=== PATIENT | female | born 1965 ===

== ENCOUNTER 2023-10-24 13:26 | Inpatient (IN) | payer MEDICARE, OTHER ==
[~2023-10-24] VITALS: Ht 172.7 cm; Wt 113.4 kg
[2023-10-24 20:45] VITALS: BP 122/73; TEMP 98.2; O2SAT 97
[2023-10-24] MEDS: HYDROMORPHONE HCL 2 MG TABLET PO PRN (22:31)
[2023-10-24] MEDS: METHOCARBAMOL 750 MG TABLET PO PRN (22:31)
[2023-10-24] MEDS ORDERED: PANT40TA49 PO (23:25)
[2023-10-24] MEDS ORDERED: LACT10SO58 PO (23:25)
[2023-10-24] MEDS ORDERED: MELO-107 PO (23:25)
[2023-10-24] MEDS ORDERED: ACET-2154 PO (23:25)
[2023-10-24] MEDS ORDERED: NALO25TA4 PO (23:25)
[2023-10-24] MEDS ORDERED: HYDR200T4 PO (23:25)
[2023-10-24] MEDS ORDERED: ASCO500T85 PO (23:25)
[2023-10-24] MEDS ORDERED: TRAZ-257 PO (23:25)
[2023-10-24] MEDS ORDERED: LISI10TA29 PO (23:25)
[2023-10-24] MEDS ORDERED: BISA10SU61 RC (23:25)
[2023-10-24] MEDS ORDERED: DIPH25TA25 PO (23:25)
[2023-10-24] MEDS ORDERED: DOCU-141 PO (23:25)
[2023-10-24] MEDS ORDERED: GABA-532 PO (23:25)
[2023-10-24] MEDS ORDERED: LORA5SOL38 PO (23:25)
[2023-10-25] MEDS ORDERED: MORPHINE SULFATE SR 15 MG TABLET.SA PO SCH ×2 (00:15→09:00)
[2023-10-25] MEDS: MORPHINE SULFATE SR 15 MG TABLET.SA PO SCH (00:47)
[2023-10-25 04:30] VITALS: BP 136/62; TEMP 98.5; O2SAT 98
[2023-10-25 08:00] VITALS: BP 146/78; TEMP 98.6; O2SAT 96
[2023-10-25] MEDS ORDERED: BISACODYL 10 MG SUPP.RECT RC PRN (15:30)
[2023-10-25] MEDS ORDERED: diphenhydrAMINE 25 MG CAP PO PRN (15:30)
[2023-10-25] MEDS: LISINOPRIL 10 MG TABLET PO SCH (15:46)
[2023-10-25] MEDS: MELOXICAM 7.5 MG TABLET PO SCH (15:46)
[2023-10-25] MEDS: HYDROXYCHLOROQUINE SULFATE 200 MG TABLET PO SCH (15:46)
[2023-10-25] MEDS: HYDROMORPHONE HCL 2 MG TABLET PO PRN (15:47)
[2023-10-25] MEDS: LORATADINE 10 MG TABLET PO SCH (16:03)
[2023-10-25] MEDS: GABAPENTIN 100 MG CAPSULE PO SCH (16:03)
[2023-10-25] MEDS: LACTULOSE 20 G/30 ML LIQUID UDC PO PRN (16:04)
[2023-10-25 16:07] VITALS: BP 133/80; TEMP 97.9; O2SAT 96
[2023-10-25] MEDS: DOCUSATE SODIUM 100 MG CAPSULE PO SCH (17:30)
[2023-10-25] MEDS: ASCORBIC ACID 500 MG TABLET PO SCH (17:30)
[2023-10-25 19:45] VITALS: BP 129/57; TEMP 98.1; O2SAT 97
[2023-10-26 05:44] VITALS: BP 117/45; TEMP 97.3; O2SAT 97
[2023-10-26] MEDS: PANTOPRAZOLE SODIUM 40 MG TABLET.DR PO SCH (06:14)
[2023-10-26] MEDS ORDERED: Naloxegol Oxalate (Movantik) 25 MG) PO SCH (09:00)
[2023-10-26 16:26] VITALS: BP 126/75; TEMP 98.6; O2SAT 96
[2023-10-26] MEDS: ACETAMINOPHEN 325 MG TABLET PO PRN (18:21)
[2023-10-26 19:50] VITALS: BP 130/52; TEMP 97.7; O2SAT 96
[2023-10-27] MEDS: TRAZODONE 100 MG TABLET PO PRN (00:43)
[2023-10-27 05:36] VITALS: BP 114/49; TEMP 98; O2SAT 95
[2023-10-27 08:40] VITALS: BP 103/68; TEMP 99; O2SAT 97
[2023-10-27 11:06] VITALS: BP 103/76; TEMP 99; O2SAT 98
[2023-10-27 16:23] VITALS: BP 125/79; TEMP 97.9; O2SAT 97
[2023-10-27 20:00] VITALS: BP 115/53; TEMP 98.3; O2SAT 97
[2023-10-28 06:44] LABS: BASOPHILS # (AUTO) 0.1 K/UL (0.0-0.2); BASOPHILS % (AUTO) 0.7 % (0.0-2.0); EOSINOPHILS # (AUTO) 0.4 K/uL (0.0-0.7); EOSINOPHILS % (AUTO) 5.7 % (0.0-7.0); HEMATOCRIT 34.5 % (31.2-41.9); HEMOGLOBIN 11.3 g/dL (10.9-14.3); LYMPHOCYTES # (AUTO) 1.5 K/uL (0.8-4.8); LYMPHOCYTES % (AUTO) 19.7 % (20.5-51.5); MEAN CORPUSCULAR HEMOGLOBIN 28.2 uug (24.7-32.8); MEAN CORPUSCULAR HGB CONC 33 g/dL (32.3-35.6); MONOCYTES # (AUTO) 0.7 K/uL (0.1-1.30); MONOCYTES % (AUTO) 9.5 % (0.0-11.0); NEUTROPHILS # (AUTO) 4.8 K/uL (1.8-8.9); NEUTROPHILS % (AUTO) 64.4 % (38.5-71.5); PLATELET COUNT (AUTO) 358 K/uL (179-408); RED BLOOD CELL COUNT(AUTO) 4.01 MIL/uL (3.63-4.92); RED CELL DISTRIBUTION WIDTH 15.9 % (12.3-17.7); WHITE BLOOD COUNT (AUTO) 7.5 K/uL (3.8-11.8)
[2023-10-28 07:07] LABS: THYROID STIMULATING HORMONE 1.474 mIU/mL (0.358-3.740)
[2023-10-28 07:26] LABS: ALBUMIN 2.9 g/dL (3.4-5.0); BILIRUBIN,TOTAL 0.2 mg/dL (0.2-1.0); CALCIUM 8.5 mg/dL (8.5-10.1); CREATININE 0.6 mg/dL (0.6-1.3); MAGNESIUM 2.3 mg/dL (1.8-2.4); POTASSIUM 4.3 mmol/L (3.5-5.1); TOTAL PROTEIN, SERUM 6.8 g/dL (6.4-8.2)
[2023-10-28 07:28] LABS: DIFFERENTIAL COMMENT 1
[2023-10-28 07:38] LABS: C-REACTIVE PROTEIN 0.93 mg/dL (0.00-0.30)
[2023-10-28 16:00] VITALS: BP 119/55; TEMP 98; O2SAT 97
[2023-10-28 20:02] VITALS: TEMP 99
[2023-10-29 06:04] VITALS: TEMP 98.3
[2023-10-29 13:30] VITALS: BP 120/68
[2023-10-29 16:30] VITALS: BP 118/74; TEMP 98.9; O2SAT 96
[2023-10-29] MEDS: MELOXICAM 7.5 MG TABLET PO SCH (18:00)
[2023-10-29 20:05] VITALS: BP 118/55; TEMP 98.4; O2SAT 96
[2023-10-30 07:10] VITALS: BP 105/51; TEMP 98.5; O2SAT 95
[2023-10-30 16:00] VITALS: BP 113/71; TEMP 97.2; O2SAT 98
[2023-10-31 08:00] VITALS: BP 118/72; TEMP 98.1; O2SAT 97
[2023-10-31 20:32] VITALS: BP 110/64; TEMP 98.6; O2SAT 95
[2023-11-01 08:00] VITALS: BP 103/45; TEMP 98.4; O2SAT 96
[2023-11-01 15:29] VITALS: BP 122/77; TEMP 98.7; O2SAT 98
[2023-11-01 20:00] VITALS: BP 101/55; TEMP 99; O2SAT 96
[2023-11-02 12:00] VITALS: BP 121/72; TEMP 98.6; O2SAT 96
== END 2023-11-02 14:45 | disposition home health service (06) | DRG 949 ==
PROVIDERS: ADMIT Physical Medicine & Rehabilitation Pain Medicine; ATTEND Physical Medicine & Rehabilitation Pain Medicine
DX: T84.84XD Pain due to internal orthopedic prosthetic devices, implants and grafts, subsequent encounter (principal); D68.59 Other primary thrombophilia; E44.0 Moderate protein-calorie malnutrition; I42.9 Cardiomyopathy, unspecified; E66.9 Obesity, unspecified; Z68.38 Body mass index [BMI] 38.0-38.9, adult; E88.09 Other disorders of plasma-protein metabolism, not elsewhere classified; G40.909 Epilepsy, unspecified, not intractable, without status epilepticus; G62.9 Polyneuropathy, unspecified; G89.29 Other chronic pain; I10 Essential (primary) hypertension; R73.03 Prediabetes; M51.36 Other intervertebral disc degeneration, lumbar region; M32.9 Systemic lupus erythematosus, unspecified; M19.90 Unspecified osteoarthritis, unspecified site; Z79.891 Long term (current) use of opiate analgesic; F32.A Depression, unspecified; K27.9 Peptic ulcer, site unspecified, unspecified as acute or chronic, without hemorrhage or perforation; Z86.74 Personal history of sudden cardiac arrest; Z96.641 Presence of right artificial hip joint; Z98.84 Bariatric surgery status; K21.9 Gastro-esophageal reflux disease without esophagitis
CPT/HCPCS: 36415; 82652; 83735; 84100; 84443; 85025; 86140; 97535-GO-CO; A4663

== ENCOUNTER 2024-04-04 14:09 | Inpatient (IN) | payer MEDICARE, OTHER ==
[~2024-04-04] VITALS: Ht 172.7 cm; Wt 113.4 kg
[~2024-04-04 14:09] MED LIST: ACET-2154 PO; ASCO500T85 PO; BISA10SU61 RC; DIPH25TA25 PO; DOCU-141 PO; GABA-532 PO; HYDR200T4 PO; LACT10SO58 PO; LISI10TA29 PO; LORA5SOL38 PO; MELO-107 PO; NALO25TA4 PO; PANT40TA49 PO; TRAZ-257 PO
[2024-04-04 20:00] VITALS: BP 128/80; TEMP 101.8; O2SAT 95
[2024-04-04] MEDS ORDERED: MULT-225 PO (23:04)
[2024-04-04] MEDS ORDERED: ALBU2.5V13 NEB (23:04)
[2024-04-04] MEDS ORDERED: HYDR8TAB2 PO (23:04)
[2024-04-04] MEDS ORDERED: ASPI-612 PO (23:04)
[2024-04-04] MEDS ORDERED: PREG75CA PO (23:04)
[2024-04-04] MEDS ORDERED: METH-807 PO (23:04)
[2024-04-04] MEDS ORDERED: HYDR-4209 PO (23:04)
[2024-04-04] MEDS ORDERED: MAGN400O6 PO (23:04)
[2024-04-05] MEDS: HYDROMORPHONE HCL 2 MG TABLET PO ONE (01:22)
[2024-04-05] MEDS: GABAPENTIN 100 MG CAPSULE PO SCH (05:07)
[2024-04-05] MEDS: HYDROCODONE/APAP 5-325MG TABLET PO PRN (05:12)
[2024-04-05 06:00] VITALS: BP 141/62; TEMP 99.7; O2SAT 95
[2024-04-05] MEDS ORDERED: GABAPENTIN 100 MG CAPSULE PO SCH (06:00)
[2024-04-05] MEDS: PANTOPRAZOLE SODIUM 40 MG TABLET.DR PO SCH (06:37)
[2024-04-05] MEDS ORDERED: HYDROXYCHLOROQUINE SULFATE 200 MG TABLET PO SCH (09:00)
[2024-04-05] MEDS ORDERED: ASPIRIN 325 MG TABLET PO SCH (09:00)
[2024-04-05] MEDS ORDERED: PREGABALIN 25 MG CAPSULE PO SCH (09:00)
[2024-04-05] MEDS ORDERED: LISINOPRIL 10 MG TABLET PO SCH (09:00)
[2024-04-05] MEDS ORDERED: METHOCARBAMOL 750 MG TABLET PO SCH (09:00)
[2024-04-05] MEDS: MELOXICAM 7.5 MG TABLET PO SCH (09:12)
[2024-04-05] MEDS: LISINOPRIL 10 MG TABLET PO SCH (09:12)
[2024-04-05] MEDS: PREGABALIN 25 MG CAPSULE PO SCH (09:12)
[2024-04-05] MEDS: ASCORBIC ACID 500 MG TABLET PO SCH (09:13)
[2024-04-05] MEDS: LORATADINE 10 MG TABLET PO SCH (09:13)
[2024-04-05] MEDS: DOCUSATE SODIUM 100 MG CAPSULE PO SCH (09:13)
[2024-04-05] MEDS: ASPIRIN EC 325 MG TABLET.DR PO SCH (09:13)
[2024-04-05] MEDS ORDERED: BISA-79 PO (11:07)
[2024-04-05] MEDS ORDERED: CHOL500062 PO (11:16)
[2024-04-05] MEDS: CHOLECALCIFEROL 1,000 UNIT TABLET PO SCH (12:44)
[2024-04-05] MEDS: MULTIVITAMINS,THERAPEUTIC TABLET PO SCH (12:44)
[2024-04-05] MEDS: METHOCARBAMOL 750 MG TABLET PO PRN (12:44)
[2024-04-05] MEDS: HYDROMORPHONE HCL 2 MG TABLET PO PRN (13:45)
[2024-04-05] MEDS: LACTULOSE 20 G/30 ML LIQUID UDC PO PRN (13:45)
[2024-04-05 16:17] VITALS: BP 101/50; TEMP 99.5; O2SAT 96
[2024-04-05 19:40] VITALS: BP 105/59; TEMP 99.3; O2SAT 94
[2024-04-05] MEDS: TRAZODONE 100 MG TABLET PO PRN (21:17)
[2024-04-06 06:40] VITALS: BP 120/60; TEMP 98.9; O2SAT 94
[2024-04-06 16:03] VITALS: BP 101/48; TEMP 98.6; O2SAT 96
[2024-04-06 19:41] VITALS: BP 128/69; TEMP 100.9; O2SAT 95
[2024-04-06] MEDS: ACETAMINOPHEN 325 MG TABLET PO PRN (21:51)
[2024-04-06] MEDS: APIXABAN 2.5 MG TABLET PO SCH (22:11)
[2024-04-07 05:50] VITALS: BP 143/70; TEMP 99.4; O2SAT 99
[2024-04-07 09:54] VITALS: BP 128/72; TEMP 98.9; O2SAT 99
[2024-04-07 17:51] VITALS: BP 120/60; TEMP 98; O2SAT 99
[2024-04-07 20:09] VITALS: BP 111/60; TEMP 99; O2SAT 97
[2024-04-08 06:00] VITALS: BP 142/70; TEMP 99.7; O2SAT 95
[2024-04-08] MEDS ORDERED: HYDROMORPHONE HCL 2 MG TABLET ONE (06:10)
[2024-04-08 16:33] VITALS: BP_SYST 109; BP_SYST 130; BP_DIAS 58; BP_DIAS 69; TEMP 99.7; O2SAT 92; O2SAT 98
[2024-04-08 20:17] VITALS: BP 105/60; TEMP 99.8; O2SAT 95
[2024-04-09 05:55] VITALS: BP 133/56; TEMP 99.3; O2SAT 99
[2024-04-09 10:55] VITALS: BP 113/55; TEMP 99; O2SAT 94
[2024-04-09] MEDS ORDERED: NALOXONE HCL 0.4 MG/ML AMPUL IV PRN (13:15)
[2024-04-09] MEDS: OXYCODONE HCL 10 MG TAB.SR.12H PO SCH (13:32)
[2024-04-09] MEDS: HYDROMORPHONE HCL 2 MG TABLET PO PRN (14:45)
[2024-04-09 15:44] VITALS: BP 131/53; TEMP 99.1; O2SAT 94
[2024-04-09 20:29] VITALS: BP 134/72; TEMP 98.7; O2SAT 98
[2024-04-10 06:00] VITALS: BP 133/62; TEMP 98.7; O2SAT 97
[2024-04-10 15:52] VITALS: BP 111/51; TEMP 97.7; TEMP 99.7; O2SAT 100
[2024-04-10 20:05] VITALS: BP 132/78; TEMP 99.2; O2SAT 96
[2024-04-11] MEDS: FLUTICASONE PROP NASAL SPRAY 16 GM BOTTLE NS SCH (01:15)
[2024-04-11 06:10] VITALS: BP 142/67; TEMP 98.3; O2SAT 97
[2024-04-11] MEDS ORDERED: METHOCARBAMOL 500 MG TABLET ONE (07:39)
[2024-04-11 16:08] VITALS: BP 116/47; TEMP 97.9; O2SAT 98
[2024-04-11 20:00] VITALS: BP 135/69; TEMP 99.2; O2SAT 98
[2024-04-12 06:00] VITALS: BP 130/66; TEMP 99.4; O2SAT 97
[2024-04-12 16:02] VITALS: BP 102/60; TEMP 98.2; O2SAT 96
[2024-04-12 20:00] VITALS: BP 122/84; TEMP 98.5; O2SAT 97
[2024-04-13 06:43] VITALS: BP 122/68; TEMP 98.3; O2SAT 98
[2024-04-13] MEDS: LACTULOSE 20 G/30 ML LIQUID UDC PO ONE (10:03)
[2024-04-13 16:00] VITALS: BP 110/54; TEMP 97.8; O2SAT 97
[2024-04-13 20:00] VITALS: BP 129/74; TEMP 98.8; O2SAT 97
[2024-04-13] MEDS: FLUTICASONE PROP NASAL SPRAY 16 GM BOTTLE NS SCH (21:13)
[2024-04-14 06:00] VITALS: BP 121/72; TEMP 98.1; O2SAT 96
[2024-04-14 16:29] VITALS: BP 115/61; TEMP 98.1; O2SAT 97
[2024-04-14] MEDS: LACTULOSE 20 G/30 ML LIQUID UDC PO ONE (17:56)
[2024-04-14 20:14] VITALS: BP 111/43; TEMP 98.5; O2SAT 99
[2024-04-15 06:15] VITALS: BP 145/61; TEMP 98.4; O2SAT 99
[2024-04-15 16:26] VITALS: BP 114/67; TEMP 98.5; O2SAT 96
[2024-04-15] MEDS: LACTULOSE 20 G/30 ML LIQUID UDC PO PRN (17:59)
[2024-04-15 21:38] VITALS: BP 127/75; TEMP 98.8; O2SAT 97
[2024-04-16 15:35] VITALS: BP 125/70; TEMP 97.7; O2SAT 97
[2024-04-16 20:00] VITALS: BP 112/54; TEMP 98.3; O2SAT 95
[2024-04-17 06:00] VITALS: BP 109/60; TEMP 98.3; O2SAT 98
[2024-04-17 16:00] VITALS: BP 126/65; TEMP 98.6; O2SAT 95
== END 2024-04-17 16:30 | DRG 560 ==
PROVIDERS: ADMIT Physical Medicine & Rehabilitation Pain Medicine; ATTEND Physical Medicine & Rehabilitation Pain Medicine
DX: Z47.1 Aftercare following joint replacement surgery (principal); I42.9 Cardiomyopathy, unspecified; J45.909 Unspecified asthma, uncomplicated; Z96.643 Presence of artificial hip joint, bilateral; I10 Essential (primary) hypertension; G89.29 Other chronic pain; E11.9 Type 2 diabetes mellitus without complications; E66.01 Morbid (severe) obesity due to excess calories; Z68.38 Body mass index [BMI] 38.0-38.9, adult; Z87.11 Personal history of peptic ulcer disease; Z79.891 Long term (current) use of opiate analgesic; F32.A Depression, unspecified; K59.00 Constipation, unspecified; M81.8 Other osteoporosis without current pathological fracture; T38.0X5D Adverse effect of glucocorticoids and synthetic analogues, subsequent encounter
CPT/HCPCS: 73501; 73502; 97535-GO-CO; J3535